=== PATIENT | male | born 2000 | race Caucasian/White ===

== ENCOUNTER 2023-09-15 19:41 | Emergency (ER) | payer OTHER ==
[~2023-09-15] VITALS: Ht 167.6 cm; Wt 61.1 kg
[2023-09-15 19:44] VITALS: BP 122/87; TEMP 97.8; O2SAT 100
[2023-09-15] MEDS ORDERED: TRAZ1TAB11 PO (20:01)
[2023-09-15] MEDS ORDERED: LINZ72CA PO (20:01)
[2023-09-15] MEDS ORDERED: ADDE1TAB14 PO (20:01)
[2023-09-15] MEDS ORDERED: ADDE15CA3 PO (20:01)
== END 2023-09-15 21:06 | disposition home or self-care (01) ==
LOC: M ED 19:41
DX: S99.912A Unspecified injury of left ankle, initial encounter (principal); X50.0XXA Overexertion from strenuous movement or load, initial encounter; F90.0 Attention-deficit hyperactivity disorder, predominantly inattentive type; Y92.009 Unspecified place in unspecified non-institutional (private) residence as the place of occurrence of the external cause; Y93.89 Activity, other specified; Y99.9 Unspecified external cause status; Z88.1 Allergy status to other antibiotic agents; Z88.5 Allergy status to narcotic agent; Z88.6 Allergy status to analgesic agent; Z79.899 Other long term (current) drug therapy

== ENCOUNTER → 2024-04-01 | Outpatient (REF) | payer OTHER ==
[~2024-04-01] MED LIST: ADDE15CA3 PO; ADDE1TAB14 PO; LINZ72CA PO; TRAZ1TAB11 PO
[2024-04-02 13:03] LABS: BASO # 0.1 10^3/uL (0.0-0.2); BASO % 0.9 % (0.0-1.0); EOS # 0.1 10^3/uL (0.0-0.5); EOS % 1.4 % (0.0-3.0); HEMATOCRIT 36.6 % (42.0-52.0); HEMOGLOBIN 12.6 g/dl (13.5-17.5); LYMPH # 1.7 10^3/uL (1.5-5.0); LYMPH % 25.8 % (24.0-44.0); MEAN CORPUSCULAR HEMOGLOBIN 31.2 pg (27.0-33.0); MEAN CORPUSCULAR HGB CONC 34.4 g/dl (32.0-36.5); MEAN CORPUSCULAR VOLUME 90.6 fl (80.0-96.0); MONO # 0.4 10^3/uL (0.0-0.8); MONO % 6.7 % (2.0-8.0); NEUTROPHILS # 4.2 10^3/uL (1.5-8.5); NEUTROPHILS % 64.6 % (36.0-66.0); PLATELET COUNT, AUTOMATED 330 10^3/uL (150-450); RED BLOOD COUNT 4.04 10^6/uL (4.30-6.10); WHITE BLOOD COUNT 6.4 10^3/uL (4.0-10.0)
[2024-04-02 13:11] LABS: ALBUMIN 4.1 G/DL (3.2-5.2); ALKALINE PHOSPHATASE 77 U/L (40-129); ALT/SGPT 36 U/L (7.0-40); AST/SGOT 21 U/L (<34); BILIRUBIN,TOTAL 0.5 MG/DL (0.3-1.2); BLOOD UREA NITROGEN 12 MG/DL (9-23); CALCIUM LEVEL 9.5 MG/DL (8.5-10.1); CARBON DIOXIDE LEVEL 26 MMOL/L (20-31); CHLORIDE LEVEL 110 MMOL/L (98-107); CREATININE FOR GFR 0.75 MG/DL (0.70-1.30); GLOMERULAR FILTRATION RATE > 60.0 (>60); GLUCOSE, FASTING 86 MG/DL (60-100); IRON (FE) 85 UG/DL (65-175); PERCENT SATURATION 26.6 % (19.7-50.0); POTASSIUM SERUM 4.6 MMOL/L (3.5-5.1); SODIUM LEVEL 140 MMOL/L (136-145); TOTAL IRON BINDING CAPACITY 320 UG/DL (250-425); TOTAL PROTEIN 7.4 G/DL (5.7-8.2)
[2024-04-02 13:12] LABS: FERRITIN 18.2 NG/ML (10.5-307.3); THYROID STIMULATING HORMONE 0.645 uIU/ML (0.55-4.78)
[2024-04-02 13:13] LABS: FOLATE 14.86 NG/ML (>5.4); TOTAL 25(OH) VITAMIN D 20.8 NG/ML (20.0-100.0); VITAMIN B12 LEVEL 407 PG/ML (211-911)
== END ==
LOC: M LAB REF 12:07
PROVIDERS: ATTEND Physician Assistant
DX: D64.9 Anemia, unspecified (principal); E53.9 Vitamin B deficiency, unspecified; F31.81 Bipolar II disorder; E55.9 Vitamin D deficiency, unspecified

== ENCOUNTER → 2024-04-21 | Outpatient (CLI) | payer OTHER | LOC: M LAB 08:21 | PROVIDERS: ATTEND Physician Assistant | DX: R53.83 Other fatigue (principal) ==

== ENCOUNTER → 2024-06-11 | Outpatient (REF) | payer OTHER | LOC: M LAB REF 11:33 | PROVIDERS: ATTEND Physician Assistant | DX: R30.0 Dysuria (principal) ==

== ENCOUNTER → 2024-06-26 | Outpatient (CLI) | payer OTHER | LOC: EDSEX 09:31 → M EKG 09:31 | PROVIDERS: ATTEND Physician Assistant | DX: R42 Dizziness and giddiness (principal) ==

== ENCOUNTER → 2024-09-30 | Outpatient (CLI) | payer OTHER | LOC: M WHC 08:22 | PROVIDERS: ATTEND Nurse Practitioner Family | DX: Z34.82 Encounter for supervision of other normal pregnancy, second trimester (principal) ==

== ENCOUNTER → 2024-12-14 | Outpatient (CLI) | payer OTHER | LOC: M WHC 08:04 | PROVIDERS: ATTEND Advanced Practice Midwife | DX: O43.193 Other malformation of placenta, third trimester (principal); Z3A.28 28 weeks gestation of pregnancy ==

== ENCOUNTER → 2025-01-11 | Outpatient (CLI) | payer OTHER | LOC: M WHC 08:04 | PROVIDERS: ATTEND Advanced Practice Midwife | DX: O43.192 Other malformation of placenta, second trimester (principal); Z3A.33 33 weeks gestation of pregnancy ==

== ENCOUNTER → 2025-02-01 | Outpatient (REF) | payer OTHER | LOC: M SFHCWAGY 12:48 | PROVIDERS: ATTEND Obstetrics & Gynecology | DX: Z34.80 Encounter for supervision of other normal pregnancy, unspecified trimester (principal) ==

== ENCOUNTER → 2025-02-08 | Outpatient (CLI) | payer OTHER | LOC: M WHC 08:18 | PROVIDERS: ATTEND Advanced Practice Midwife | DX: O43.192 Other malformation of placenta, second trimester (principal); Z3A.37 37 weeks gestation of pregnancy ==

== ENCOUNTER → 2025-03-22 | Outpatient (REF) | payer OTHER ==
[~2025-03-22] MED LIST changes: +ACET-683 PO; +IBUP80TA PO; +LAMO100T3 PO
== END ==
LOC: M LAB REF 11:36
PROVIDERS: ATTEND Physician Assistant
DX: R32 Unspecified urinary incontinence (principal)

== ENCOUNTER → 2025-05-02 | Outpatient (REF) | payer OTHER | LOC: M LAB REF 14:18 | PROVIDERS: ATTEND Family Medicine Addiction Medicine | DX: N30.00 Acute cystitis without hematuria (principal) ==